=== PATIENT | female | born 1990 | race Caucasian/White ===

== ENCOUNTER 2024-04-08 04:43 | Outpatient (CLI) | payer BC, SELFPAY ==
[2024-04-08 12:01] LABS: Panorama Kit Sent via Fed Ex
[2024-04-08 12:25] LABS: Abs Immature Grans 0.06 10^3/uL (0.0-0.06); Absolute Basophil Count 0.04 10^3/uL (0.0-0.2); Absolute Eosinophil Count 0.29 10^3/uL (0.0-0.7); Absolute Monocyte Count 0.92 10^3/uL (0.1-0.8); Basophils % 0.3 %; Eosinophils % 2.3 %; HCT 38.6 % (36.0-46.0); HGB 13.4 g/dL (11.2-15.7); Immature Grans % 0.5 %; Lymphocytes % 16.3 %; MCH 33.8 pg (27.0-33.0); MCHC 34.7 % (32.0-36.0); MCV 98 fL (80-95); MPV 10.2 fL (8.0-11.0); Monocytes % 7.4 %; Neutrophils % 73.2 %; Platelet Count 226 10^3/uL (130-400); RBC 3.96 10^6/uL (3.93-5.22); RDW 12.7 % (11.7-14.6); RDW-SD 46.1 fL; WBC 12.43 10^3/uL (4.4-10.8)
[2024-04-08 12:28] LABS: Absolute Lymphocyte Count 2.03 10^3/uL (1.2-3.4)
[2024-04-08 12:46] LABS: Glucose,1 Hr (Glucola) 106 mg/dL (80-140)
[2024-04-08 12:59] LABS: ALT 26 U/L (14-59); AST 15 U/L (15-37); Albumin 3.3 g/dL (3.4-5.0); Alkaline Phosphatase 53 U/L (46-116); Anion Gap 8.2 mmol/L (3-11); BUN 8 mg/dL (7-18); Bilirubin, Total 0.29 mg/dL (0.2-1.0); CO2 24.8 mmol/L (21.0-32.0); CREATININE 0.8 mg/dL (0.55-1.02); Calcium 9.4 mg/dL (8.5-10.1); Chloride 102 mmol/L (98-107); Estimated GFR 100.96 (mL/min/1.73m2); Glucose 108 mg/dL (74-106); Potassium 3.3 mmol/L (3.5-5.1); Sodium 135 mmol/L (136-145); TSH (W/Ref FT4) 0.22 uIU/mL (0.36-3.74); Total Protein 7.8 g/dL (6.4-8.2)
[2024-04-08 13:19] LABS: FREE T4 0.81 ng/dL (0.76-1.46)
[2024-04-08 13:30] LABS: Hemoglobin A1C 5.5 % (<5.7)
[2024-04-08 23:30] LABS: HIV-1/2 Ag & Ab Screen Negative (Negative)
[2024-04-09 10:06] LABS: Varicella IgG Antibody Positive (See Note)
[2024-04-09 10:08] LABS: Rubella IgG Ab (UVM) Positive (See Note)
[2024-04-09 10:58] LABS: Hepatitis B Surface Ag Negative (Negative)
[2024-04-09 11:39] LABS: Hepatitis C Ab w Rflx HCV PCR Negative (Negative)
[2024-04-10 17:34] LABS: Syphilis IgG w/Reflex Nonreactive (Nonreactive)
== END 2024-04-08 04:44 | disposition home or self-care (01) ==
LOC: LBO 04:43
PROVIDERS: Visit Provider Advanced Practice Midwife
DX: Z34.91 Encounter for supervision of normal pregnancy, unspecified, first trimester (principal); Z3A.01 Less than 8 weeks gestation of pregnancy
CPT/HCPCS: 36415; 80053; 82950; 86787; 86803; 86850; 86900; 86901; 87340; 87389; 83036; 84439; 84443; 85025; 86762; 86780

== ENCOUNTER 2024-04-08 12:38 | Outpatient (REF) | payer BC, SELFPAY ==
--- NOTE | 2024-04-08 11:00 | PAPFT_PTH ---
PATIENT: Bev Logan LOC: [facility] U#:[id number] AGE/SX: 33/F ROOM: RE04/08/[address]: Jacqueline Ashby CNM : 1990 BED: DIS: 04/08/2024 SPEC #: [id number] RECD: 04/08/24 13:03 STATUS: HARRIET REQ #: [id number] BRETT: 04/08/24 11:[address]: Jacqueline Ashby DEPT: [facility] Cytology RECD BY: Cecilia Cole ENTERED: 04/08/24 13:04 SP TYPE: PAPFT OTHR DR: Unknown,Unknown Tissues: 1 - CX/ENDOCX FOR PAP SMEARS Procedures: PAP THIN PREP/[facility] Screening HPV DNA PROBE Comments: [id number] (HPV 16 & 18/45) (CHLAMYDIA/GC)
[2024-04-08 16:31] LABS: *AMPHETAMINES SCREEN URINE Negative (Negative); *BARBITURATES SCREEN URINE Negative (Negative); *BENZODIAZEPINES SCREEN URINE Negative (Negative); Cannabinoids THC Negative (Negative); Cocaine Screen,Urine Negative (Negative); METHADONE URINE SCREEN Negative (Negative); OPIATES URINE SCREEN Negative (Negative)
[2024-04-08 16:32] LABS: Tricyclic Antidepressants Negative (Negative)
[2024-04-09 12:24] LABS: Chlamydia Result Negative (Negative); GC Result Negative (Negative)
[2024-04-14 12:34] LABS: Buprenorphine Negative ng/mL (Cutoff: 5.0)
== END 2024-04-08 12:39 | disposition home or self-care (01) ==
LOC: LBN 12:38
PROVIDERS: Visit Provider Advanced Practice Midwife
DX: Z3A.01 Less than 8 weeks gestation of pregnancy (principal); Z34.91 Encounter for supervision of normal pregnancy, unspecified, first trimester
CPT/HCPCS: 80307; 80348; 87491; 87591; 88142; 87086; 87480; 87510; 87624; 87660